=== PATIENT | male | born 1960 | race Caucasian/White ===

== ENCOUNTER → 2016-05-29 | Outpatient (CLI) | payer BC ==
[~2016-05-29] MED LIST: COZAAR100 MG PO; NORVASC5 MG PO; PRILOSEC20 M2 PO; ZITHROMAX250 MG PO; ZOFRAN ODT4 MG SL
== END | disposition home or self-care (01) ==
LOC: RAD 13:04
DX: M51.34 Other intervertebral disc degeneration, thoracic region (principal); D47.2 Monoclonal gammopathy; M54.6 Pain in thoracic spine

== ENCOUNTER → 2017-03-02 | Outpatient (CLI) | payer BC ==
[2017-03-02 10:08] LABS: BASO % 0.8 % (0.0-1.0); EOS # 0.1 10*3/uL (0.0-0.4); EOS % 1.5 % (1.0-4.0); HEMATOCRIT 41.7 % (42.0-52.0); HEMOGLOBIN 14.3 g/dl (14.0-18.0); LYMPH # 1.7 10*3/uL (1.3-4.4); LYMPH % 33.2 % (27.0-41.0); MEAN CELL VOLUME 90.5 fl (80.0-94.0); MEAN CORPUSCULAR HGB CONC 34.3 g/dl (33.0-37.0); MEAN PLATELET VOLUME 9.6 fl (9.6-12.3); MONO # 0.5 10*3/uL (0.1-1.0); MONO % 8.6 % (3.0-9.0); NEUT # 2.9 10*3/uL (2.3-7.9); NEUT % 55.7 % (47.0-73.0); PLATELET COUNT AUTOMATED 206 10*3/uL (130-400); RED BLOOD COUNT 4.61 10*6/uL (4.50-5.90); RED CELL DISTRI WIDTH 12.5 % (0-14.5); WHITE BLOOD COUNT 5.2 10*3/uL (4.8-10.8)
[2017-03-02 10:37] LABS: ALBUMIN 3.7 gm/dl (3.1-4.5); ALKALINE PHOSPHATASE 52 U/L (45-117); BUN 22 mg/dl (7-24); CHLORIDE 106 mmol/L (98-107); CREATININE 0.85 mg/dL (0.70-1.30); LDH 126 U/L (87-241); POTASSIUM 3.8 mmol/L (3.5-5.1); SGOT/AST 15 IU/L (3-35); SGPT/ALT 26 U/L (12-78); SODIUM 140 mmol/L (136-145); TOTAL PROTEIN 7.3 gm/dL (6.4-8.2)
[2017-03-03 14:11] LABS: A/G RATIO 1.3 (0.7-1.7); ALBUMIN 3.9 g/dL (2.9-4.4); ALPHA-1-GLOBULIN 0.2 g/dL (0.0-0.4); ALPHA-2-GLOBULIN 0.6 g/dL (0.4-1.0); BETA GLOBULIN 1.6 g/dL (0.7-1.3); GAMMA GLOBULIN 0.8 g/dL (0.4-1.8); GLOBULIN, TOTAL 3.1 g/dL (2.2-3.9); M-SPIKE 0.5 g/dL (Not Observed)
[2017-03-03 16:13] LABS: BETA-2 MICROGLOBULIN 010181 1.3 mg/L (0.6-2.4); FREE LAMBDA LIGHT CHAINS 8.6 mg/L (5.7-26.3); KAPPA/LAMBDA RATIO 3.6 (0.26-1.65)
== END | disposition home or self-care (01) ==
LOC: LAB 01:46
PROVIDERS: Internal Medicine Hematology & Oncology
DX: D47.2 Monoclonal gammopathy (principal)

== ENCOUNTER → 2017-03-10 | Outpatient (CLI) | payer BC ==
[2017-03-11 13:08] LABS: ALBUMIN, URINE 23.7 % (.); ALPHA - 2 - GLOBULIN, URINE 22.3 % (.); ALPHA-1-GLOBULIN, URINE 3.7 % (.); GAMMA GLOBULIN, URINE 18.2 % (.); M-SPIKE, % Not Observed % (Not Observed); PROTEIN,TOTAL - URINE RANDOM 13.6 mg/dL (Not Estab.)
== END | disposition home or self-care (01) ==
LOC: LAB 09:52
PROVIDERS: Internal Medicine
DX: D47.2 Monoclonal gammopathy (principal)

== ENCOUNTER → 2018-02-07 | Outpatient (CLI) | payer BC ==
[~2018-02-07] MED LIST changes: +MYRBETRIQ50 M1 PO
--- NOTE | ~2018-02-07 | ST ---
[place], [place] EXERCISE STRESS TEST REPORT [id number] UN[facility] #: [id number] ROOM: DOCTOR: JILL STROUD MD BIRTHDATE: [birth year] DOS: 02/07/2018 REFERRING PHYSICIAN: Dr. Ramirez. INDICATION: Chest pain. The patient underwent a standard Tho protocol stress EKG. The patient's baseline EKG shows sinus bradycardia with a heart rate of 57 with a blood pressure of 118/80. The patient's peak heart rate was 149 with a blood pressure of 160/90. The patient's peak heart rate of 149, represents 89% of maximum predicted. The patient had no chest pain, no EKG changes, no arrhythmias. SUMMARY OF FINDINGS: 1. Negative stress EKG to ischemic changes. 2. Atkinson treadmill score was 10.5 portending a low risk prognosis. 3. Please see separate report for perfusion scan imaging. JILL STROUD MD CM:STRESS:EXERCISE STRESS TEST REPORT [id number] JILL STROUD MD
== END | disposition home or self-care (01) ==
LOC: CARD 03:51
DX: R07.9 Chest pain, unspecified (principal); T78.40XD Allergy, unspecified, subsequent encounter

== ENCOUNTER 2018-10-04 13:02 | Inpatient (IN) | payer BC ==
[~2018-10-04] VITALS: Ht 177.8 cm; Wt 91.7 kg
--- NOTE | ~2018-10-04 | EKG ---
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
--- NOTE | ~2018-10-04 | EKG ---
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
--- NOTE | ~2018-10-04 | EKG ---
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
[2018-10-04 13:06] VITALS: BP 130/81
[2018-10-04 14:14] LABS: BASO # 0.1 10*3/uL (0.0-0.1); BASO % 1.1 % (0.0-1.0); EOS # 0.1 10*3/uL (0.0-0.4); EOS % 1.1 % (1.0-4.0); HEMATOCRIT 43.2 % (42.0-52.0); HEMOGLOBIN 14.4 g/dl (14.0-18.0); LYMPH # 1.2 10*3/uL (1.3-4.4); LYMPH % 22.5 % (27.0-41.0); MEAN CELL VOLUME 93.5 fl (80.0-94.0); MEAN CORPUSCULAR HGB 31.2 pg (27.0-31.0); MEAN CORPUSCULAR HGB CONC 33.3 g/dl (33.0-37.0); MEAN PLATELET VOLUME 9.4 fl (9.6-12.3); MONO # 0.4 10*3/uL (0.1-1.0); MONO % 6.9 % (3.0-9.0); NEUT # 3.6 10*3/uL (2.3-7.9); NEUT % 68.2 % (47.0-73.0); PLATELET COUNT AUTOMATED 232 10*3/uL (130-400); RED BLOOD COUNT 4.62 10*6/uL (4.50-5.90); RED CELL DISTRI WIDTH 12.4 % (0-14.5); WHITE BLOOD COUNT 5.3 10*3/uL (4.8-10.8)
[2018-10-04 14:31] LABS: ALBUMIN 3.9 gm/dl (3.1-4.5); ALKALINE PHOSPHATASE 56 U/L (45-117); BUN 21 mg/dl (7-24); CHLORIDE 105 mmol/L (98-107); CREATININE 0.94 mg/dL (0.70-1.30); LIPASE 87 U/L (73-393); POTASSIUM 4.3 mmol/L (3.5-5.1); SGOT/AST 15 IU/L (3-35); SGPT/ALT 28 U/L (12-78); SODIUM 138 mmol/L (136-145); TOTAL PROTEIN 7.5 gm/dL (6.4-8.2)
[2018-10-04 14:35] LABS: ACT PARTIAL THROMBO TIME 25.5 SECONDS (20.0-32.1)
[2018-10-04 14:38] LABS: TROPONIN I < 0.015 ng/ml (<0.045)
[2018-10-04 14:46] VITALS: BP 112/75
[2018-10-04 15:06] LABS: BILIRUBIN NEGATIVE (NEGATIVE); BLOOD NEGATIVE (NEGATIVE); CLARITY CLEAR (CLEAR); COLOR YELLOW (YELLOW); GLUCOSE NEGATIVE (NEGATIVE); KETONE NEGATIVE (NEGATIVE); LEUKO ESTERASE NEGATIVE (NEGATIVE); NITRITE NEGATIVE (NEGATIVE); PH 7.5 (5.0-9.0); SPECIFIC GRAVITY 1.015 (1.005-1.030); UROBILINOGEN 0.2 E.U./dl (0.2-1.0)
[2018-10-04 16:00] VITALS: BP 118/94
--- NOTE | 2018-10-04 16:01 | NUR ---
A 58, admitted to , under the services of PATTI Wood DO with a diagnosis of ATYPICAL CHEST PAIN. Chief complaint is EPIGASTRIC AREA PAIN WITH SOME DIZZINESS, PAIN TO CHEST WITH TURNING OF NECK TO THE SIDE. Patient arrived via stretcher from ER. Monitor applied. Initial assessment completed. Vital signs taken and recorded. PATTI WOOD DO notified of admission to the unit. Orders received. See assessment for past medical history, medications and allergies. Patient and/or family oriented to unit. [facility]. Clothing/patient valuable form completed. MIKE MCMAHAN
--- NOTE | 2018-10-04 16:36 | NUR ---
MED REC UPDATED WITH PT AT BEDSIDE.
[2018-10-04 20:00] VITALS: BP 137/82
--- NOTE | 2018-10-04 23:26 | NUR ---
ASSUME CARE OF PATIENT. RESTING COMFORTABLY IN BED. NO S/S OF DISTRESS NOTED. NO VOICED COMPLAINTS AT THIS TIME. CALL LIGHT IN REACH.
[2018-10-05] VITALS: BP 127/72
--- NOTE | 2018-10-05 05:10 | NUR ---
PATIENT TOOK 0600 MEDICATIONS WITHOUT ISSUE. NO VOICED COMPLAINTS AT THIS TIME. CALL LIGHT IN REACH
[2018-10-05 06:14] LABS: BASO % 0.1 % (0.0-1.0); EOS % 0.1 % (1.0-4.0); HEMATOCRIT 42.1 % (42.0-52.0); HEMOGLOBIN 14.1 g/dl (14.0-18.0); LYMPH # 1.1 10*3/uL (1.3-4.4); LYMPH % 10.3 % (27.0-41.0); MEAN CELL VOLUME 92.1 fl (80.0-94.0); MEAN CORPUSCULAR HGB 30.9 pg (27.0-31.0); MEAN CORPUSCULAR HGB CONC 33.5 g/dl (33.0-37.0); MEAN PLATELET VOLUME 9.9 fl (9.6-12.3); MONO # 0.2 10*3/uL (0.1-1.0); MONO % 1.9 % (3.0-9.0); NEUT # 9.4 10*3/uL (2.3-7.9); NEUT % 87.2 % (47.0-73.0); PLATELET COUNT AUTOMATED 257 10*3/uL (130-400); RED BLOOD COUNT 4.57 10*6/uL (4.50-5.90); RED CELL DISTRI WIDTH 12.2 % (0-14.5); WHITE BLOOD COUNT 10.7 10*3/uL (4.8-10.8)
[2018-10-05 06:27] LABS: ALBUMIN 3.4 gm/dl (3.1-4.5); BUN 21 mg/dl (7-24); CHLORIDE 106 mmol/L (98-107); CREATININE 0.93 mg/dL (0.70-1.30); HDL CHOLESTEROL 47 mg/dl (40-60); POTASSIUM 4.2 mmol/L (3.5-5.1); SGOT/AST 13 IU/L (3-35); SGPT/ALT 25 U/L (12-78); SODIUM 138 mmol/L (136-145); TOTAL PROTEIN 7.1 gm/dL (6.4-8.2)
[2018-10-05 06:30] LABS: ALKALINE PHOSPHATASE 52 U/L (45-117); CHOLESTEROL 175 mg/dL (<200); LDL CHOLESTEROL 112 mg/dL (9-159); PHOSPHOROUS 2.4 mg/dL (2.5-4.9); TRIGLYCERIDES 81 mg/dl (<150); VLDL CHOLESTEROL 16 mg/dL (6-40)
[2018-10-05 06:47] LABS: VITAMIN D, 25-HYDROXY 26.6 ng/mL (30-100)
--- NOTE | 2018-10-05 09:00 | NUR ---
Uniformer in to talk to patient. Patient states lives at home with alone. There are few steps in the home. Physician: dede sharif [facility]acy: [facility] [place] [facility]: none Patient's level of ADLs: INDEPENDENT Patient has working utilities: all working DME: none Follow-up physician's appointment after d/c: will be made by hospitalist nurse director upon discharge Does patient want to access PORTAL?: no Discharge plan discussed with patient, patient lives at home, he is independent in adls and ambulation, he states he will be returning home when able and denies any home needs. MALLIKA THOMSON
[2018-10-05] MEDS ORDERED: CYCLOBENZAPRINE10 MG PO (09:12)
[2018-10-05] MEDS ORDERED: PREDNISONE10 MG PO (09:12)
--- NOTE | 2018-10-05 10:19 | NUR ---
PATIENT DISCHARGED TO HOME WITH BELONGINGS.
== END 2018-10-05 11:55 | disposition home or self-care (01) | DRG 206 ==
LOC: ED 13:02 → EDHOLD 15:27 → 5E 15:27
PROVIDERS: Physician Assistant; Registered Nurse; ADMIT Internal Medicine
DX: M94.0 Chondrocostal junction syndrome [Tietze] (principal); I10 Essential (primary) hypertension; K21.9 Gastro-esophageal reflux disease without esophagitis; R07.89 Other chest pain; E83.41 Hypermagnesemia; E80.6 Other disorders of bilirubin metabolism; R00.1 Bradycardia, unspecified; Z72.89 Other problems related to lifestyle; Z82.49 Family history of ischemic heart disease and other diseases of the circulatory system; Z82.3 Family history of stroke

== ENCOUNTER → 2019-03-13 | Outpatient (CLI) | payer BC ==
[~2019-03-13] MED LIST changes: +CYCLOBENZAPRINE10 MG PO; +PREDNISONE10 MG PO
== END | disposition home or self-care (01) ==
LOC: RAD 11:52
DX: D47.2 Monoclonal gammopathy (principal)

== ENCOUNTER → 2021-05-05 | Outpatient (CLI) | payer BC ==
[2021-05-05 11:23] LABS: BASO # 0.1 10*3/uL (0.0-0.1); BASO % 0.9 % (0.0-1.0); EOS # 0.2 10*3/uL (0.0-0.4); EOS % 3.6 % (1.0-4.0); HEMATOCRIT 44.8 % (42.0-52.0); LYMPH # 1.6 10*3/uL (1.3-4.4); LYMPH % 25.7 % (27.0-41.0); MEAN CELL VOLUME 90.1 fl (80.0-94.0); MEAN CORPUSCULAR HGB 30.2 pg (27.0-31.0); MEAN CORPUSCULAR HGB CONC 33.5 g/dl (33.0-37.0); MONO # 0.5 10*3/uL (0.1-1.0); MONO % 7.6 % (3.0-9.0); NEUT # 3.9 10*3/uL (2.3-7.9); NEUT % 61.9 % (47.0-73.0); PLATELET COUNT AUTOMATED 235 10*3/uL (130-400); RED BLOOD COUNT 4.97 10*6/uL (4.50-5.90); RED CELL DISTRI WIDTH 12.4 % (0-14.5); WHITE BLOOD COUNT 6.3 10*3/uL (4.8-10.8)
[2021-05-05 11:55] LABS: ALKALINE PHOSPHATASE 62 U/L (45-117); BUN 21 mg/dl (7-24); CHLORIDE 104 mmol/L (98-107); CREATININE 0.95 mg/dL (0.70-1.30); POTASSIUM 4.1 mmol/L (3.5-5.1); SGOT/AST 13 IU/L (3-35); SGPT/ALT 27 U/L (12-78); SODIUM 137 mmol/L (136-145); TOTAL PROTEIN 7.8 gm/dL (6.4-8.2)
[2021-05-06 03:06] LABS: TOTAL PROTEIN, SERUM 7.2 g/dL (6.0-8.5)
[2021-05-06 14:08] LABS: A/G RATIO 1.2 (0.7-1.7); ALBUMIN 3.9 g/dL (2.9-4.4); ALPHA-1-GLOBULIN 0.2 g/dL (0.0-0.4); ALPHA-2-GLOBULIN 0.7 g/dL (0.4-1.0); BETA GLOBULIN 1.6 g/dL (0.7-1.3); GAMMA GLOBULIN 0.8 g/dL (0.4-1.8); GLOBULIN, TOTAL 3.3 g/dL (2.2-3.9); M-SPIKE 0.4 g/dL (Not Observed)
[2021-05-06 18:06] LABS: FREE LAMBDA LIGHT CHAINS 8.5 mg/L (5.7-26.3); KAPPA/LAMBDA RATIO 4.82 (0.26-1.65)
[2021-05-07 08:08] LABS: BETA-2 MICROGLOBULIN 1.5 mg/L (0.6-2.4)
== END | disposition home or self-care (01) ==
LOC: LAB 10:57
PROVIDERS: ATTEND Internal Medicine Hematology & Oncology
DX: D47.2 Monoclonal gammopathy (principal)

== ENCOUNTER → 2022-04-23 | Outpatient (CLI) | payer BC ==
[2022-04-23 08:02] LABS: BASO # 0.1 10*3/uL (0.0-0.1); BASO % 0.9 % (0.0-1.0); EOS # 0.1 10*3/uL (0.0-0.4); EOS % 1.7 % (1.0-4.0); HEMATOCRIT 44.9 % (42.0-52.0); LYMPH # 1.6 10*3/uL (1.3-4.4); LYMPH % 26.5 % (27.0-41.0); MEAN CELL VOLUME 91.6 fl (80.0-94.0); MEAN CORPUSCULAR HGB 30.6 pg (27.0-31.0); MEAN CORPUSCULAR HGB CONC 33.4 g/dl (33.0-37.0); MEAN PLATELET VOLUME 9.4 fl (9.6-12.3); MONO # 0.4 10*3/uL (0.1-1.0); MONO % 7.5 % (3.0-9.0); NEUT # 3.7 10*3/uL (2.3-7.9); NEUT % 63.2 % (47.0-73.0); PLATELET COUNT AUTOMATED 221 10*3/uL (130-400); RED CELL DISTRI WIDTH 12.9 % (0-14.5); WHITE BLOOD COUNT 5.9 10*3/uL (4.8-10.8)
[2022-04-23 08:18] LABS: ALKALINE PHOSPHATASE 51 U/L (46-116); BUN 17 mg/dl (9-23); CHLORIDE 105 mmol/L (98-107); POTASSIUM 3.9 mmol/L (3.4-5.1); SGPT/ALT 22 U/L (10-49); TOTAL PROTEIN 7.1 gm/dL (6.0-8.0)
[2022-04-24 02:06] LABS: TOTAL PROTEIN, SERUM 6.9 g/dL (6.0-8.5)
[2022-04-24 15:07] LABS: A/G RATIO 1.2 (0.7-1.7); ALBUMIN 3.8 g/dL (2.9-4.4); ALPHA-1-GLOBULIN 0.2 g/dL (0.0-0.4); ALPHA-2-GLOBULIN 0.6 g/dL (0.4-1.0); BETA GLOBULIN 1.6 g/dL (0.7-1.3); GAMMA GLOBULIN 0.7 g/dL (0.4-1.8); GLOBULIN, TOTAL 3.1 g/dL (2.2-3.9); M-SPIKE 0.4 g/dL (Not Observed)
[2022-04-25 08:08] LABS: BETA-2 MICROGLOBULIN 1.6 mg/L (0.6-2.4)
== END | disposition home or self-care (01) ==
LOC: LAB 07:35
PROVIDERS: ATTEND Internal Medicine Hematology & Oncology
DX: D47.2 Monoclonal gammopathy (principal)

== ENCOUNTER → 2022-05-22 | Outpatient (CLI) | payer BC ==
[2022-05-22 08:31] LABS: TOTAL PROTEIN 7.1 gm/dL (6.0-8.0)
== END | disposition home or self-care (01) ==
LOC: LAB 07:56
PROVIDERS: ATTEND Nurse Practitioner Family
DX: R17 Unspecified jaundice (principal)

== ENCOUNTER → 2023-05-05 | Outpatient (CLI) | payer BC ==
[2023-05-05 12:41] LABS: BASO # 0.1 10*3/uL (0.0-0.1); BASO % 0.9 % (0.0-1.0); EOS # 0.1 10*3/uL (0.0-0.4); EOS % 1.1 % (1.0-4.0); HEMATOCRIT 45.6 % (42.0-52.0); LYMPH # 1.8 10*3/uL (1.3-4.4); LYMPH % 33.9 % (27.0-41.0); MEAN CELL VOLUME 92.7 fl (80.0-94.0); MEAN CORPUSCULAR HGB 30.3 pg (27.0-31.0); MEAN CORPUSCULAR HGB CONC 32.7 g/dl (33.0-37.0); MEAN PLATELET VOLUME 9.4 fl (9.6-12.3); MONO # 0.4 10*3/uL (0.1-1.0); MONO % 7.3 % (3.0-9.0); NEUT % 56.6 % (47.0-73.0); PLATELET COUNT AUTOMATED 263 10*3/uL (130-400); RED BLOOD COUNT 4.92 10*6/uL (4.50-5.90); RED CELL DISTRI WIDTH 12.4 % (0-14.5); RETICULOCYTE % 1.37 % (0.50-2.50); WHITE BLOOD COUNT 5.3 10*3/uL (4.8-10.8)
[2023-05-05 13:03] LABS: TOTAL PROTEIN 7.4 gm/dL (6.0-8.0)
[2023-05-05 13:04] LABS: ALKALINE PHOSPHATASE 52 U/L (46-116); BUN 18 mg/dl (9-23); CHLORIDE 106 mmol/L (98-107); SGPT/ALT 20 U/L (5-49); TOTAL PROTEIN 7.4 gm/dL (6.0-8.0)
[2023-05-06 06:08] LABS: TOTAL PROTEIN, SERUM 6.8 g/dL (6.0-8.5)
[2023-05-06 09:07] LABS: HBSAG Negative (Negative); HEP B CORE AB, IGM Negative (Negative); HEPATITIS C ANTIBODY Non Reactive (Non Reactive)
[2023-05-06 14:08] LABS: A/G RATIO 1.3 (0.7-1.7); ALBUMIN 3.8 g/dL (2.9-4.4); ALPHA-1-GLOBULIN 0.2 g/dL (0.0-0.4); ALPHA-2-GLOBULIN 0.6 g/dL (0.4-1.0); BETA GLOBULIN 1.5 g/dL (0.7-1.3); GAMMA GLOBULIN 0.7 g/dL (0.4-1.8); M-SPIKE 0.4 g/dL (Not Observed)
[2023-05-06 15:07] LABS: FREE KAPPA LIGHT CHAINS 60.4 mg/L (3.3-19.4); FREE LAMBDA LIGHT CHAINS 9.7 mg/L (5.7-26.3); KAPPA/LAMBDA RATIO 6.23 (0.26-1.65)
[2023-05-07 07:07] LABS: BETA-2 MICROGLOBULIN 1.4 mg/L (0.6-2.4)
== END ==
LOC: LAB 12:02
PROVIDERS: Internal Medicine Hematology & Oncology; ATTEND Nurse Practitioner Family
DX: D47.2 Monoclonal gammopathy (principal); R17 Unspecified jaundice

== ENCOUNTER → 2024-04-24 | Outpatient (CLI) | payer OTHER | END | disposition home or self-care (01) | LOC: US 08:30 → CARD 09:30 | PROVIDERS: ATTEND Physician Assistant | DX: I65.23 Occlusion and stenosis of bilateral carotid arteries (principal); R42 Dizziness and giddiness ==

== ENCOUNTER → 2024-08-17 | Outpatient (CLI) | payer OTHER ==
[2024-08-17 09:42] LABS: TOTAL PROTEIN 7.4 gm/dL (6.0-8.0)
== END | disposition home or self-care (01) ==
LOC: LAB 08:15
PROVIDERS: Internal Medicine Gastroenterology; ATTEND Nurse Practitioner Family
DX: R17 Unspecified jaundice (principal)